=== PATIENT | male | born 1965 | race Two or more races ===

== ENCOUNTER 2016-08-21 08:47 | Emergency (ER) | payer MEDICAID ==
[~2016-08-21] VITALS: Ht 167.6 cm; Wt 72.0 kg
[2016-08-21] MEDS ORDERED: ATOR40TA71 PO (09:04)
[2016-08-21 11:43] VITALS: BP 128/84
== END 2016-08-21 11:44 | disposition home or self-care (01) ==
LOC: EMS 08:49
DX: L08.9 Local infection of the skin and subcutaneous tissue, unspecified (principal); E78.00 Pure hypercholesterolemia, unspecified
CPT/HCPCS: 99281; 99283